=== PATIENT | male | born 1985 | race Caucasian/White ===

== ENCOUNTER 2020-06-22 08:05 | Inpatient (IN) | payer BC ==
[~2020-06-22] VITALS: Ht 177.8 cm; Wt 120.2 kg
[2020-06-22 08:16] VITALS: BP 161/109
[2020-06-22 08:53] LABS: ABSOLUTE BASOPHILS 0.1 thou/uL (0.0-0.2); ABSOLUTE LYMPHOCYTES 1.7 thou/uL (0.8-5.3); ABSOLUTE MONOCYTES 0.9 thou/uL (0.0-1.2); ABSOLUTE NEUTROPHILS 7.7 thou/uL (1.6-8.1); BASOPHILS 0.6 %; EOSINOPHILS 0.1 %; HEMATOCRIT 39.7 % (42.0-52.0); HEMOGLOBIN 13.1 gm/dL (14.0-18.0); LYMPHOCYTES 16.2 %; MCH 29.3 pg (26.0-34.0); MCHC 32.9 g/dL (28.0-37.0); MCV 89.1 fL (80.0-100.0); MONOCYTES 8.5 %; MPV 7.8 fl. (7.2-11.1); NUCLEATED RBCS 0 /100WBC; PLATELET COUNT* 193 thou/uL (150-400); POLYS 74.6 %; RBC 4.46 mil/uL (4.50-6.00); RDW-CV 25.7 % (10.5-14.5); WBC 10.3 thou/uL (4.0-11.0)
[2020-06-22 08:55] LABS: CALCIUM 8.3 mg/dL (8.5-10.1); CREATININE 0.9 mg/dL (0.6-1.3); POTASSIUM 3.5 mmol/L (3.5-5.1)
[2020-06-22 09:17] LABS: ANISOCYTOSIS 3+; TEARDROPS 1+
[2020-06-22 12:45] VITALS: BP 143/96
[2020-06-22 14:18] VITALS: BP 139/93
[2020-06-22 14:20] VITALS: BP 145/99
--- NOTE | 2020-06-22 16:19 | NUR ---
PATIENT ARRIVED TO UNIT VIA CART. ALERT AND ORIENTED X4. UP AD KATHLEEN IN ROOM TO BATHROOM SAFELY. DENIES PAIN AT THIS TIME. RIGHT GROIN/RIGHT LOWER BUTTOCK AREA RED, WARM AND FIRM WITH SMALL AMOUNT OF YELLOW DRAINAGE NOTED. IV ANTIBIODIC INFUSING WITHOUT DIFFICULTY OR SIDE EFFECTS. ORIENTED TO ROOM AND BED CONTROLS.
[2020-06-22 20:00] VITALS: BP 145/97
[2020-06-23 02:06] LABS: GLYCOHEMOGLOBIN (HGB A1C) 10.5 % (4.8-5.6)
[2020-06-23 04:07] LABS: HEMATOCRIT 36.4 % (42.0-52.0); HEMOGLOBIN 11.9 gm/dL (14.0-18.0); MCH 29.4 pg (26.0-34.0); MCHC 32.6 g/dL (28.0-37.0); MCV 89.9 fL (80.0-100.0); MPV 8.2 fl. (7.2-11.1); RBC 4.04 mil/uL (4.50-6.00); RDW-CV 24.5 % (10.5-14.5); WBC 6.4 thou/uL (4.0-11.0)
[2020-06-23 04:19] LABS: CALCIUM 8.2 mg/dL (8.5-10.1); CREATININE 0.7 mg/dL (0.6-1.3); POTASSIUM 3.5 mmol/L (3.5-5.1)
--- NOTE | 2020-06-23 04:49 | NUR ---
ASSUMED CARES AT 1920. ALERT AND ORIENTED. PLEASANT. DENIED ANY PAIN. IV NS @140 CC/HR. WAS NPO AFTER MIDNIGHT. UP ADLIB IN RM. ABSCESS TO RIGHT GROIN WITH SMALL AMOUNT OF SEROUS SANGINOUS DRAINAGE NOTED ON PAD. CALL LIGHT IN REACH.
[2020-06-23 08:00] VITALS: BP 156/100
--- NOTE | 2020-06-23 15:46 | NUR ---
Pt is A&O. Resides at home with . Independent. No DME. No hx of HH or SNF. Surgery consulted. IVABX, cultures pending. Goal is home at ct. CM follwoing for needs.
--- NOTE | 2020-06-23 16:05 | NUR ---
THIS NURSE AGREES WITH ASSESSMENT
--- NOTE | 2020-06-23 18:31 | NUR ---
PATIENT RESTING IN BED. SPOUSE AT BEDSIDE. DRESSING TO GROIN IN PLACE WITH NETTING UNDERGARMENT. LITTLE SEROSANGUINEOUS TO DRESSING. C/O PAIN TO AREA FENTANYL X1 GIVEN. BLOOD SUGARS MONITORED THROUGHOUT SHIFT. INSULIN GIVEN ORDERED. PATIENT TOLERATING DIABETIC DIET. IV TO RIGHT AC INFUSING NORMAL SALINE AT 140MLS/HR. DRESSING C/D/I. NO QUESTIONS OR CONCERNS VOICED.
[2020-06-23 20:00] VITALS: BP 142/97
[2020-06-24 06:45] LABS: ABSOLUTE LYMPHOCYTES 1.3 thou/uL (0.8-5.3); ABSOLUTE MONOCYTES 0.6 thou/uL (0.0-1.2); ABSOLUTE NEUTROPHILS 4.7 thou/uL (1.6-8.1); BASOPHILS 0.3 %; EOSINOPHILS 0.3 %; HEMOGLOBIN 12.1 gm/dL (14.0-18.0); LYMPHOCYTES 20.1 %; MCH 29.9 pg (26.0-34.0); MCHC 32.8 g/dL (28.0-37.0); MCV 91.3 fL (80.0-100.0); MONOCYTES 8.5 %; MPV 7.9 fl. (7.2-11.1); NUCLEATED RBCS 0 /100WBC; PLATELET COUNT* 233 thou/uL (150-400); POLYS 70.8 %; RBC 4.05 mil/uL (4.50-6.00); RDW-CV 23.9 % (10.5-14.5); WBC 6.7 thou/uL (4.0-11.0)
[2020-06-24 07:12] LABS: CALCIUM 8.7 mg/dL (8.5-10.1); POTASSIUM 3.9 mmol/L (3.5-5.1)
--- NOTE | 2020-06-24 07:50 | NUR ---
ASSUMED CARE AT 1920. ALERT AND ORIENTED. PLEASANT. DENIED ANY NEED FOR PAIN MEDS. UP AD KATHLEEN. RIGHT GROIN ABSCESS WITH PACKING AND ABD PAD. DRSG CHANGED X 2. SMALL AMOUNTS OF PURULENT DRAINAGE. CALL LIGHT IN REACH.
[2020-06-24 08:00] VITALS: BP 137/93
--- NOTE | 2020-06-24 13:03 | NUR ---
Pt had bedside I&D yesterday, surg following. Possible dc to home tomorrow. CM to arrange a new PCP appt for Pt at dc for diabetic eval.
[2020-06-24 17:04] VITALS: BP 143/93
--- NOTE | 2020-06-24 19:27 | NUR ---
PATIENT HAS REMAINED A&OX4, PLEASANT AND COOPERATIVE WITH CARES THIS SHIFT. PATIENT HAS DENIED ANY PAIN/NAUSEA. MEDICATIONS ADMINISTERED ORDERED. PATIENT UP AD KATHLEEN IN ROOM. CALL LIGHT WITHIN REACH.
[2020-06-24 20:30] VITALS: BP 140/94
[2020-06-25 04:00] VITALS: BP 126/88
[2020-06-25 05:23] LABS: HEMATOCRIT 36.5 % (42.0-52.0); HEMOGLOBIN 11.8 gm/dL (14.0-18.0); MCH 29.9 pg (26.0-34.0); MCHC 32.4 g/dL (28.0-37.0); MCV 92.3 fL (80.0-100.0); MPV 7.8 fl. (7.2-11.1); RBC 3.95 mil/uL (4.50-6.00); RDW-CV 23.6 % (10.5-14.5); WBC 6.6 thou/uL (4.0-11.0)
[2020-06-25 05:36] LABS: CALCIUM 9.2 mg/dL (8.5-10.1); POTASSIUM 3.5 mmol/L (3.5-5.1)
--- NOTE | 2020-06-25 06:52 | NUR ---
Alert and oriented x 4. He is up independently in the room and halls. Vitals are stable. Dressings to rt groin dry and intact. He has slept well.
[2020-06-25 07:50] VITALS: BP 143/97
[2020-06-25] MEDS ORDERED: METFORMIN HCL500 M3 PO (07:56)
[2020-06-25] MEDS ORDERED: LIPITOR 20 MG T20 M1 PO (07:57)
[2020-06-25] MEDS ORDERED: LOSARTAN POTASS50 MG PO (07:59)
[2020-06-25] MEDS ORDERED: ONDANSETRON HCL4 M2 PO (10:00)
[2020-06-25] MEDS ORDERED: MILK OF MA2400 MG/11 PO (10:00)
[2020-06-25] MEDS ORDERED: AUGMENTIN 875-1 EACH PO (10:00)
[2020-06-25] MEDS ORDERED: ACIDOPHILUS1 EAC4 PO (10:00)
[2020-06-25] MEDS ORDERED: THERA M PLUS T1 EAC2 PO (10:00)
[2020-06-25] MEDS ORDERED: GLUCOPHAGE500 MG PO (10:00)
[2020-06-25 12:30] VITALS: BP 143/97
--- NOTE | 2020-06-25 12:56 | NUR ---
PATIENT GIVEN DISCHARGE INSTRUCTIONS, PRESCRIPTIONS AND INFORMATION SHEETS. PATIENT DENIES PAIN/NAUSEA PRIOR TO DISCHARGE. IV REMOVED. PATIENT DENIES QUESTIONS/CONCERNS AT THIS TIME. PATIENT AMBULATED OFF UNIT WITH PERSONAL BELONGINGS ACCOMPANIED BY AND NURSING STAFF AT APPROX. [id number].
[2020-06-25 12:58] VITALS: BP 143/97
== END 2020-06-25 12:55 | disposition home or self-care (01) | DRG 580 ==
LOC: M.ERS 08:05 → M.ORTHSURG 08:42 → M.TBA-ER 08:42 → M.ORTHSURG 14:09
PROVIDERS: Emergency Medicine Emergency Medical Services; Surgery; ADMIT Internal Medicine; ATTEND Internal Medicine
PROC: 0J990ZZ Drainage of Buttock Subcutaneous Tissue and Fascia, Open Approach (ICD-10-PCS; principal; 2020-06-23)
DX: L03.317 Cellulitis of buttock (principal); E87.1 Hypo-osmolality and hyponatremia; R65.10 Systemic inflammatory response syndrome (SIRS) of non-infectious origin without acute organ dysfunction; E87.2 Acidosis; L02.31 Cutaneous abscess of buttock; E11.9 Type 2 diabetes mellitus without complications; Z20.822 Contact with and (suspected) exposure to COVID-19; Z79.899 Other long term (current) drug therapy